=== PATIENT | female | born 1980 | race Hispanic/Latino ===

== ENCOUNTER 2022-06-23 19:45 | Emergency (ER) | payer BC, SELFPAY ==
--- NOTE | 2022-06-23 19:55 | ED.ABDPAIN ---
HPI - Abdominal Pain General Chief Complaint: Urogenital-Female Stated Complaint: Lower Back/ Hip/ Abdoman Pain/ Nausea Time Seen by Provider: 06/23/22 19:55 Source: patient Mode of arrival: ambulatory Limitations: no limitations History of Present Illness HPI narrative: Naomi is a 42-year-old female patient presenting to the clinic today with complaints of bilateral lower back, bilateral flank, abdominal pain, and nausea x 3 days. She reports she has had urinary frequency and some burning with urination. She denies any fever however she states that that she has had some chills. Last bowel movement was this morning and was normal for her. She denies any blood in her stool. Her last menstrual period was the 1st of the month. Denies any vaginal discharge or abnormal odors Related Data Home Medications Medication Instructions Recorded Confirmed insulin NPH isoph U-100 human 100 unit subcut 06/23/22 unit/mL (3 mL) subcutaneous pen (Humulin N NPH U-100 Insulin KwikPen) insulin lispro 100 unit/mL subcut 06/23/22 subcutaneous pen metformin 500 mg tablet,extended mg PO 06/23/22 release 24 hr Allergies Allergy/AdvReac Type Severity Reaction Status Date / Time No Known Allergies Allergy Verified 06/23/22 19:58 Review of Systems Review of Systems: Pertinent positives per HPI. Patient denies any fever, chills, rash, headache, visual changes, dizziness, cough, shortness of breath, chest pain, palpitations, vomiting, diarrhea, constipation. PMFSH Comments At the time of my signature, I reviewed and agree with the nursing past medical, surgical, social, and family history. There is no relevant family history pertinent to the patient complaint. Exam Narrative: General: Well-developed, well nourished, in no apparent distress Head: Normocephalic, atraumatic Eyes: Pupils equally round and reactive to light bilaterally, EOM intact, sclera and conjunctive clear, no discharge, lids normal Ears: TMs intact and clear, ear canals clear, no drainage, grossly hearing normal. Nose: Nares patent, no discharge, no inflammation, no sinus tenderness. Mouth: Oral pharynx without lesions or masses, good dentition, MMM. Neck: Supple, trachea midline, no enlargement of anterior or posterior cervical nodes, no thyroid masses or goiter palpable. Cardio: Regular rate and rhythm, s1 and s2 normal, no murmur appreciated. Resp: Clear to auscultation bilaterally, no rhonchi, rales, wheezing or rubs Abdomen: Soft, pliable, generalized tenderness to palpation, no organomegaly, bowel sounds present all 4 quadrants, bilateral CVAT tenderness Course Course Emergency Course: Portions of this record may have been created with voice recognition software. Level of Care: Express Care Visit Vital Signs Vital signs: Vital signs reviewed MDM - Abdominal Pain MDM Narrative Medical decision making narrative: At the time of visit patient is resting comfortably on the exam table. Urinalysis was completed and glucose was 3+, blood 3+, protein, 2+, nitrate positive, and trace leukocyte I suspect the patient has pyelonephritis/ glucosuria. Prescription was sent to the pharmacy for Bactrim DS. Supportive measures were discussed with the patient she voiced understanding of discharge instructions and agrees to treatment plan. Differential Diagnosis Differential diagnosis: Likely abdominal pain, calculus of kidney and other ( urinary tract infection,kidney infection) Discharge Plan Discharge Clinical Impression: Pyelonephritis, Glucosuria Patient Disposition: Home, Self-Care Condition: Stable Instructions: Antibiotic Form, Kidney Infection (ED) Additional Instructions: El an?lisis de orina muestra glucosa 3+, aleyda 3+, prote?na 2+, nitrato positivo y trazas de leucocitos. Mandaremos por cultura [place] Bactrim ds 1 comprimido cada 12 horas x7 d?as Aumente los l?quidos y mant?ngase hamzah hidratado [place] de adelant
[2022-06-23 19:58] VITALS: BP 115/72; PULSE 102; RESP 16; TEMP 37.2; O2SAT 98
== END 2022-06-23 20:24 | disposition home or self-care (01) ==
PROVIDERS: Emergency Provider Nurse Practitioner Family
DX: N12 Tubulo-interstitial nephritis, not specified as acute or chronic (principal); R81 Glycosuria; E11.9 Type 2 diabetes mellitus without complications; Z79.4 Long term (current) use of insulin; Z79.84 Long term (current) use of oral hypoglycemic drugs
CPT/HCPCS: 81003; 87077; 87086; 87186; 99203; G0463

== ENCOUNTER 2023-02-13 13:34 | Emergency (ER) | payer BC, SELFPAY ==
[2023-02-13 13:49] VITALS: BP 151/96; PULSE 85; RESP 16; TEMP 36.3; O2SAT 98
--- NOTE | 2023-02-13 14:13 | ED.DENTAL ---
HPI - Dental/Oral General Chief complaint: Dental/Oral Stated complaint: Dental pain Time Seen by Provider: 02/13/23 14:03 Source: patient, family (Daughter) and RN notes reviewed Mode of arrival: ambulatory Limitations: no limitations History of Present Illness HPI Narrative: Patient presents today complaining of left lower dental pain x1 week. Reports blood and pus to her gumline. She currently rates her pain 7/10 and has been taking Tylenol without much relief. She does not have a dentist. They have been calling to try to make her an appointment but has not found one yet. States the pain radiates to her left ear. She also reports a swollen lymph node in her left neck. Related Data Home Medications Medication Instructions Recorded Confirmed metformin 500 mg tablet,extended mg PO 06/23/22 release 24 hr atorvastatin 20 mg tablet mg 02/13/23 Allergies Allergy/AdvReac Type Severity Reaction Status Date / Time No Known Allergies Allergy Verified 02/13/23 13:46 Review of Systems Review of Systems: CONSTITUTIONAL: Denies body aches, fever, chills, or sweats. EYES: Denies visual changes, redness, or discharge. ENT: Denies rhinorrhea, congestion, sore throat, or otalgia.+ dental pain CARDIOVASCULAR: Denies chest pain, palpitations, or edema. RESPIRATORY: Denies cough or dyspnea. GASTROINTESTINAL: Denies abdominal pain, nausea, vomiting, or diarrhea. GENITOURINARY: Denies dysuria or hematuria. SKIN: Denies rash, itching, or wounds. MUSCULOSKELETAL: Denies back pain, joint pain, or myalgia. NEUROLOGIC: Denies headache, numbness, tingling, or weakness. PSYCH: Denies depression or anxiety. [facility] Past Medical History Medical History (Updated 02/13/23 @ 19:36 by Merlene Jain, WOUND CARE PHYSICIAN, ) Diabetes Comments At time of signature, I have reviewed and agree with nursing past medical, surgical, social and family history unless otherwise noted. Please see nursing chart for further information. There is no relevant family history pertinent to the presenting complaint Exam Narrative: GENERAL: Well-appearing, well-nourished, and in no acute distress. HEAD: Normocephalic, atraumatic. EYES: EOMI. No redness or drainage. Conjunctivae normal. ENT: Mucous membranes pink and moist. Throat normal. Uvula midline. Large periapical abscess adjacent to teeth number 21 and 22. Tender to palpation. NECK: Normal AROM. Supple. Left anterior cervical chain lymphadenopathy. CHEST: No respiratory distress. Clear to auscultation. HEART: Regular rate and rhythm. No murmur appreciated. Normal peripheral pulses. EXTREMITIES: Normal range of motion. No edema. SKIN: Warm, dry, no rash. Capillary refill normal. Normal skin turgor. NEURO: No focal deficits. Alert and oriented x3. Gait steady. PSYCH: Normal affect. No signs of depression or anxiety. Course Course Level of Care: Express Care Visit Vital Signs Vital signs: Vital Signs Temperature 97.4 F L 02/13/23 13:49 Pulse Rate 85 02/13/23 13:49 Respiratory Rate 16 02/13/23 13:49 Blood Pressure 151/96 H 02/13/23 13:49 Pulse Oximetry 98 02/13/23 13:49 Oxygen Delivery Room Air 02/13/23 13:49 Temperature 97.4 F L 02/13/23 13:49 Pulse Rate 85 02/13/23 13:49 Respiratory Rate 16 02/13/23 13:49 Blood Pressure 151/96 H 02/13/23 13:49 Pulse Oximetry 98 02/13/23 13:49 Oxygen Delivery Room Air 02/13/23 13:49 Reviewed. Pt has been instructed to follow up with her PCP regarding her elevated blood pressure today. MDM - Dental/Oral MDM Narrative Medical decision making narrative: Obvious dental abscess. Prescription for amoxicillin sent to pharmacy. Dentist list provided to patient. Anticipatory guidance given. Differential Diagnosis Differential diagnosis: Likely gingival abscess, dental caries, toothache, dental abscess and fracture of tooth Critical Care Time Critical Care Time Critical Care Time: No Discharge Plan Dis
== END 2023-02-13 14:22 | disposition home or self-care (01) ==
PROVIDERS: Emergency Provider Nurse Practitioner; PCP Physician Assistant
DX: K04.7 Periapical abscess without sinus (principal); E11.9 Type 2 diabetes mellitus without complications
CPT/HCPCS: 99213; G0463

== ENCOUNTER 2023-07-19 09:09 | Emergency (ER) | payer MEDICAID, SELFPAY ==
[2023-07-19 09:18] VITALS: BP 111/64; PULSE 80; RESP 18; TEMP 36.4; O2SAT 99
[2023-07-19 09:44] LABS: Glucose Point of Care 243 mg/dl (65-105)
--- NOTE | 2023-07-19 09:54 | ED.NEUROSD ---
HPI - Neuro Symptoms/Deficit General Chief Complaint: Headache Stated Complaint: Bodyaches/Headache Time Seen by Provider: 07/19/23 09:18 Source: patient, family and software sales representative Mode of arrival: ambulatory Limitations: no limitations History of Present Illness HPI Narrative: Naomi is a 43-year-old female patient presenting to the clinic today with complaints of headache, facial numbness, and left arm numbness that started around 440 this morning. She reports she feels a gritty sensation in the left eye and leaking from the left eye. Also reports having some dental pain off and on. 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 Had surgery for the embolism in [place]. Patient is [place]-speaking only. Daughter is able to interpret some information- medical lower school music teacher brought into room. Patient reports the headache is on the left side and rates it a 5/10. Did take some Tylenol around 6:00 a.m. this morning and had some relief with this. Patient is diabetic- blood sugar was 243. Related Data Home Medications Medication Instructions Recorded Confirmed metformin 500 mg tablet,extended 1,000 mg PO BID 07/19/23 07/19/23 release 24 hr Allergies Allergy/AdvReac Type Severity Reaction Status Date / Time No Known Allergies Allergy Verified 07/19/23 09:17 Review of Systems Review of Systems: Pertinent positives per HPI. Patient denies any fever, chills, rash, visual changes, dizziness, cough, runny nose, sore throat, shortness of breath, chest pain, palpitations, nausea, vomiting, diarrhea, constipation, abdominal pain, or any urinary issues. [facility] Past Medical History Medical History Diabetes Comments At the time of my signature, I reviewed and agree with the nursing past medical, surgical, social, and family history. There is no relevant family history pertinent to the patient complaint. Exam Narrative: General: Well-developed, obese, in no apparent distress Head: Normocephalic, atraumatic Eyes: Pupils equally round and reactive to light bilaterally, EOM intact, sclera and conjunctive clear, no discharge, lids normal Ears: TMs intact and clear, ear canals clear, no drainage, grossly hearing normal. Nose: Nares patent, no discharge, no inflammation, no sinus tenderness. Mouth: Oropharynx without lesions or masses, good dentition, MMM. Tongue midline, even rise and fall of uvula Neck: Supple, trachea midline, no enlargement of anterior or posterior cervical nodes, no thyroid masses or goiter palpable. Cardio: Regular rate and rhythm, s1 and s2 normal, no murmur appreciated. Resp: Clear to auscultation bilaterally anteriorly and posteriorly, no rhonchi, rales, wheezing or rubs Musculoskeletal: No deformity, non-tender to palpation, grossly normal range of motion, muscle strength strong and equal, peripheral pulse strong, no edema, no cyanosis, normal gait and station Neuro: Alert and oriented x4 with normal speech, no focal deficits, cranial nerves I through XII intact, muscle strength 5 out of 5, sensation intact bilaterally-feels little more dull on the left side of face and arm Course Course Emergency Course: Portions of this record may have been created with voice recognition software. Level of Care: Express Care Visit Vital Signs Vital signs: Vital Signs Temperature 36.4 C L 07/19/23 09:18 Pulse Rate 80 07/19/23 09:18 Respiratory Rate 18 07/19/23 09:18 Blood Pressure 111/64 07/19/23 09:18 Pulse Oximetry 99 07/19/23 09:18 Oxygen Delivery Room Air 07/19/23 09:18 Temperature 36.4 C L 07/19/23 09:18 Pulse Rate 80 07/19/23 09:18 Respiratory Rate 18 07/19/23 09:18 Blood Pressure 111/64 07/19/23 09:18 Pulse Oximetry 99 07/19/23 09:18 Oxygen Delivery Room Air 07/19/23 09:18 Vital signs reviewed Transfer Transfered to: [facility] Transportation: Other (Declined EMS-[facility] signed- wi
== END 2023-07-19 09:58 | disposition short-term general hospital (02) ==
PROVIDERS: Emergency Provider Nurse Practitioner Family
DX: R20.2 Paresthesia of skin (principal); R51.9 Headache, unspecified; Z90.711 Acquired absence of uterus with remaining cervical stump; E11.9 Type 2 diabetes mellitus without complications; Z79.84 Long term (current) use of oral hypoglycemic drugs
CPT/HCPCS: 82948; 99213; G0463

== ENCOUNTER 2023-10-19 10:56 | Emergency (ER) | payer MEDICAID, SELFPAY ==
[2023-10-19 11:26] VITALS: BP 143/79; PULSE 86; RESP 16; TEMP 36.6; O2SAT 98
--- NOTE | 2023-10-19 12:02 | ED.EYEPROB ---
HPI - Eye Problem General Chief complaint: Eye Problems Stated complaint: both eyes irritated,discharge Time Seen by Provider: 10/19/23 12:00 Source: patient and RN notes reviewed Mode of arrival: ambulatory Limitations: no limitations History of Present Illness HPI Narrative: 43-year-old female presents with concern for right eye redness, drainage, irritation. Reports exposure to pinkeye. Denies vision changes or cold symptoms. chief complaint: eye redness Related Data Home Medications Medication Instructions Recorded Confirmed aspirin 81 mg tablet,delayed 81 mg PO DAILY 10/19/23 10/19/23 release atorvastatin 10 mg tablet 10 mg PO DAILY 10/19/23 10/19/23 lisinopril 5 mg tablet 5 mg PO DAILY 10/19/23 10/19/23 metformin 1,000 mg tablet 1,000 mg PO BID 10/19/23 10/19/23 Allergies Allergy/AdvReac Type Severity Reaction Status Date / Time No Known Allergies Allergy Verified 10/19/23 11:15 Review of Systems Review of Systems: CONSTITUTIONAL: Denies malaise, chills, sweats, or fever. EYES: Denies visual changes. Reports right eye redness, irritation, discharge. ENT: Denies rhinorrhea, congestion, sinus pain, otalgia or sore throat. SKIN: Denies rash or itching. NEUROLOGIC: Denies numbness, weakness, or headache. PSYCHIATRIC: Denies anxiety or depression. All systems reviewed & are unremarkable except as noted in HPI and below PMFSH Past Medical History Medical History Diabetes Comments At time of signature, agree with nursing past medical, surgical, social and family history. There is no relevant family history pertinent to the presenting complaint Exam Narrative: GENERAL: Well-appearing, well-nourished, and in no acute distress. HEAD: Normocephalic, atraumatic. EYES: PERRLA, sclera clear, and EOMI. No nystagmus. Right sclera and conjunctivae injected with drainage noted. Upper and lower eyelid unremarkable, no periorbital edema noted ENT: Nares clear, turbinates pink, no rhinorrhea or epistaxis. Mucous membranes moist. TM pearly puga with sharp light reflex bilaterally; no tragal tenderness. NECK: Supple. CHEST: No respiratory distress. Speaks in full sentences. HEART: Regular rate and rhythm. SKIN: Warm, dry, no visible rash. NEURO: Alert and oriented x3. PSYCH: Normal mood and affect Course Course Emergency Course: Patient is aware of diagnosis, understands and agrees to treatment plan. Anticipatory guidance given. Patient agrees to follow-up as directed and is aware of reasons to seek care at the emergency department. Portions of this record may have been created with voice recognition software Level of Care: Express Care Visit Vital Signs Vital signs: Vital Signs Temperature 97.9 F 10/19/23 11:26 Pulse Rate 86 10/19/23 11:26 Respiratory Rate 16 10/19/23 11:26 Blood Pressure 143/79 H 10/19/23 11:26 Pulse Oximetry 98 10/19/23 11:26 Oxygen Delivery Room Air 10/19/23 11:26 Temperature 97.9 F 10/19/23 11:26 Pulse Rate 86 10/19/23 11:26 Respiratory Rate 16 10/19/23 11:26 Blood Pressure 143/79 H 10/19/23 11:26 Pulse Oximetry 98 10/19/23 11:26 Oxygen Delivery Room Air 10/19/23 11:26 Reviewed. MDM - Eye Problem MDM Narrative Medical decision making narrative: Consideration of the following conditions may be warranted for the presenting problem, they are not final diagnoses: Bacterial conjunctivitis, allergic conjunctivitis, viral conjunctivitis, foreign body, blepharitis, chalazion, hordeolum, corneal abrasion, preseptal cellulitis, orbital cellulitis. No evidence of proptosis, ophthalmoplegia, vision loss, pain with eye movement. Exam findings show no acute concerns or changes; patient is non-toxic appearing and is in no distress. Patient is appropriate for outpatient treatment and follow-up. Critical Care Time Critical Care Time Critical Care Time: No Discharge Plan Di
== END 2023-10-19 12:19 | disposition home or self-care (01) ==
PROVIDERS: Emergency Provider Nurse Practitioner
DX: H10.9 Unspecified conjunctivitis (principal); E11.9 Type 2 diabetes mellitus without complications; Z79.84 Long term (current) use of oral hypoglycemic drugs; Z79.82 Long term (current) use of aspirin
CPT/HCPCS: 99213; G0463

== ENCOUNTER 2023-11-13 08:40 | Outpatient (CLI) | payer MEDICAID, SELFPAY ==
--- NOTE | ~2023-11-13 | MR_ITS ---
EXAMINATION: MR breast BI wo/w con INDICATION: Left nipple discharge TECHNIQUE: Axial VIBRANT pre and dynamic post contrast, Sagittal VIBRANT post contrast, Axial T2 STIR ASSET COMPARISON: None CONTRAST: Multihance, 20 cc BREAST COMPOSITION: Scattered fibroglandular tissue FINDINGS: RIGHT BREAST: There is mild background parenchymal enhancement. No abnormal enhancement is present af ter contrast administration. No pathologically enlarged axillary or internal mammary lymph nodes are identified. LEFT BREAST: There is mild background parenchymal enhancement. No abnormal enhancement is present aft er contrast administration. No pathologically enlarged axillary or internal mammary lymph nodes are i dentified. There is suggestion of left nipple prominence with inversion. IMPRESSION: 1: Mild prominence of the left nipple with possible inversion. No suspicious enhancing masses. No kay dence for malignancy in the right breast. Recommendation: Recommend correlation with diagnostic bilateral mammogram and ultrasound as clinicall y indicated. BI-RADS CATEGORY 0 - INCOMPLETE STUDY, NEED ADDITIONAL IMAGING EVALUATION. Reviewed, dictated and finalized at location M. IMPRESSION: 1: Mild prominence of the left nipple with possible inversion. No suspicious en hancing masses. No evidence for malignancy in the right breast. Recommendation: Recommend correlation with diagnostic bilateral mammogram and u ltrasound as clinically indicated. BI-RADS CATEGORY 0 - INCOMPLETE STUDY, NEED ADDITIONAL IMAGING EVALUATION.
== END 2023-11-13 08:41 | disposition home or self-care (01) ==
PROVIDERS: Visit Provider Emergency Medicine
DX: N64.52 Nipple discharge (principal)
CPT/HCPCS: 77049; A9577; C8908

== ENCOUNTER 2024-03-23 16:36 | Emergency (ER) | payer OTHER, SELFPAY ==
--- NOTE | 2024-03-23 16:47 | ED.EYEPROB ---
HPI - Eye Problem General Chief complaint: Eye Problems Stated complaint: right eye red Time Seen by Provider: 03/23/24 16:47 Source: patient Mode of arrival: ambulatory Limitations: no limitations History of Present Illness HPI Narrative: Naomi is a 44-year-old female patient presenting to the clinic today with complaints of right eye redness. Noticed around noon today that her eye was red. States that it is slightly painful to palpation around the eyelid. Denies any drainage coming from the eye. No fevers, chills, or visual changes. Related Data Home Medications Medication Instructions Recorded Confirmed aspirin 81 mg tablet,delayed 81 mg PO DAILY 10/19/23 03/23/24 release atorvastatin 10 mg tablet 10 mg PO DAILY 10/19/23 03/23/24 lisinopril 5 mg tablet 5 mg PO DAILY 10/19/23 03/23/24 metformin 1,000 mg tablet 1,000 mg PO BID 10/19/23 03/23/24 canagliflozin 300 mg tablet 300 mg PO DIRECTED 03/23/24 03/23/24 (Invokana) dulaglutide 0.75 mg/0.5 mL 0.75 mg subcut DIRECTED 03/23/24 03/23/24 subcutaneous pen injector (Trulicity) Allergies Allergy/AdvReac Type Severity Reaction Status Date / Time No Known Allergies Allergy Verified 03/23/24 16:42 Review of Systems Review of Systems: Pertinent positives per HPI. Patient denies any fever, chills, rash, headache, visual changes, dizziness, cough, runny nose, sore throat, shortness of breath, chest pain, palpitations, nausea, vomiting, diarrhea, constipation, abdominal pain, or any urinary issues. [facility] Past Medical History Medical History Diabetes Comments At the time of my signature, I reviewed and agree with the nursing past medical, surgical, social, and family history. There is no relevant family history pertinent to the patient complaint. Exam Narrative: General: Well-developed, obese, in no apparent distress Head: Normocephalic, atraumatic Eyes: Pupils equally round and reactive to light bilaterally, EOM intact, left sclera and conjunctive clear, right sclera and conjunctiva with subconjunctival hemorrhage to the lower eye, no discharge, lids normal Ears: TMs intact and clear, ear canals clear, no drainage, grossly hearing normal. Nose: Nares patent, no discharge, no inflammation, no sinus tenderness. Mouth: Oropharynx without lesions or masses, good dentition, MMM. Neck: Supple, trachea midline, no enlargement of anterior or posterior cervical nodes, no thyroid masses or goiter palpable. Cardio: Regular rate and rhythm, s1 and s2 normal, no murmur appreciated. Resp: Clear to auscultation bilaterally anteriorly and posteriorly, no rhonchi, rales, wheezing or rubs Course Course Emergency Course: Portions of this record may have been created with voice recognition software. Level of Care: Express Care Visit Vital Signs Vital signs: Vital signs reviewed Procedures Other Procedure Procedure 1: Other Procedure: Topical tetracaine 2 drops were instilled into the right eye with good anesthesia. Fluorescein stain of the right eye was performed with corneal abrasion noted at 3:00 a.m. to the right eye. No FB, ulcer or dendritic lesions. Upper lid was everted and no FB or lesions were noted. NO Ariane sign. Normal saline irrigation eye solution was performed and the patient tolerated the procedure well, no adverse reaction or complications. MDM - Eye Problem MDM Narrative Medical decision making narrative: At the time of visit patient is resting comfortably on the exam table. Patient appears to be nontoxic. Procedures: Wood's lamp exam was performed shows a corneal abrasion to the right inner mid eye at 3 oclock. No ariane sign Plan: I suspect patient has a subconjunctival hemorrhage with a corneal abrasion. Will place the patient on tobramycin eyedrops. Will have her follow-up with the eye doctor on Monday-call to make an appointment. Supportive saleem
[2024-03-23 16:50] VITALS: BP 125/72; PULSE 67; RESP 20; TEMP 36.3; O2SAT 99
[2024-03-23] MEDS: FLUORESCEIN SOD 1 MG/STRIP RIGHT EYE (17:10)
[2024-03-23] MEDS: TETRACAINE HCL 0.5% OPHTH SOLN 4 ML BTL RIGHT EYE (17:10)
[2024-03-23] MEDS: DACRIOSE EYE IRRIGATION 118 ML BOTTLE RIGHT EYE (17:11)
== END 2024-03-23 17:50 | disposition home or self-care (01) ==
PROVIDERS: Emergency Provider Nurse Practitioner Family; PCP Physician Assistant Medical
DX: S05.01XA Injury of conjunctiva and corneal abrasion without foreign body, right eye, initial encounter (principal); X58.XXXA Exposure to other specified factors, initial encounter; H11.31 Conjunctival hemorrhage, right eye; E11.9 Type 2 diabetes mellitus without complications; Z79.82 Long term (current) use of aspirin
CPT/HCPCS: 99213; A9270; G0463